=== PATIENT | male | born 2000 | race Caucasian/White ===

== ENCOUNTER 2025-02-15 09:03 | Emergency (ER) | payer OTHER ==
[~2025-02-15] VITALS: Ht 182.9 cm; Wt 93.0 kg
[2025-02-15] MEDS ORDERED: 0.9 % SODIUM CHLORIDE 1,000 ML IV ONE (09:30)
[2025-02-15] MEDS ORDERED: FAMOtidine 10 MG/ML (4ML VIAL) IV PUSH ONE (09:30)
[2025-02-15 10:04] LABS: BASO % 0.5 % (0.1-1.2); EOS # 0.06 (0.04-0.54); EOS % 0.8 % (0.7-7.0); LYMPH # 1.01 (1.18-3.74); LYMPH % 13.1 % (19.3-53.1); MEAN PLATELET VOLUME 10.90 fl (9.4-12.4); MONO # 1.23 (0.24-0.82); NEUT # 5.34 (1.56-6.13); NEUT % 69.2 % (34.0-71.1); RED CELL DISTRIBUTION WIDTH 12.6 % (11.6-14.4)
[2025-02-15 10:06] LABS: MONO % 16.0 % (4.7-12.5)
[2025-02-15 10:40] LABS: ALT/SGPT 63.0 U/L (12-78); AST/SGOT 50.0 U/L (15-37); BILIRUBIN TOTAL 0.44 mg/dL (0.3-1.2); BUN CREA RATIO 15.0 (7.0-25.0); CREATININE SERUM 1.35 mg/dL (0.70-1.30); GFR 63.88; GLOBULINA 2.9 G/DL (2.4-3.5); GLUCOSE FASTING 85.0 mg/dL (65-100); OSMOLALITY SERUM 287.0 MOSM/KG (275-295)
[2025-02-15 12:56] LABS: URINE APPEARANCE Clear; URINE BILIRRUBIN Negative (NEGATIVE); URINE BLOOD Negative; URINE COLOR Yellow; URINE GLUCOSE Negative (NEGATIVE); URINE KETONE Trace (NEGATIVE); URINE LEUKOCYTE Negative; URINE NITRATE Negative; URINE PROTEIN 30 (NEGATIVE); URINE UROBILINOGEN 0.2 E.U./dl
[2025-02-15 13:01] LABS: URINE BACTERIA 23.9 uL (0.0-1933); URINE CAST 4.83 uL (0.0-1.40); URINE EPITHELIAL CELLS 4.4 uL (0.0-38.8); URINE RBC 3.5 uL (0.0-20.8); URINE WBC 3.8 uL (0.0-23.2)
[2025-02-15 13:19] LABS: URINE MUCUS SCANT
== END 2025-02-15 13:11 | disposition home or self-care (01) ==
LOC: ER 09:03
PROVIDERS: General Practice
DX: E86.0 Dehydration (principal); I95.9 Hypotension, unspecified